=== PATIENT | male | born 1950 | race Caucasian/White ===

== ENCOUNTER → 2019-11-15 18:55 | Outpatient (CLI) | payer MEDICARE, OTHER ==
[2019-10-31 15:38] VITALS: BMI 27.8
[2019-11-15 19:48] LABS: HEMATOCRIT 39.2 % (42.0-54.0); MCHC 33.2 g/dL (31.0-37.0); MCV 90.5 fL (80.0-100.0); MEAN PLATELET VOLUME 9.8 fL (7.4-10.4); PLATELET COUNT 378 10x3/uL (130-400); RBC 4.33 10x6/uL (4.20-6.10); RDW 14.4 % (11.5-14.5); WBC 14.1 10x3/uL (4.8-10.8)
[2019-11-15 20:10] LABS: C-REACTIVE PROTEIN 3.9 mg/dL (0.0-0.9); CREATININE - SERUM 0.9 mg/dL (0.6-1.3)
[2019-11-15 20:33] LABS: LYMPHOCYTES 19 % (15-50); MONOCYTES 3 % (2-11); NEUTROPHILS 75 % (40-80); PLATELET ESTIMATE NORMAL
[2019-11-15 21:10] LABS: ERYTHROCYTE SEDIMENTATION RATE 6 mm/hr (0-20)
== END | disposition home or self-care (01) ==
LOC: D.LABREF 18:55
PROVIDERS: ATTEND Family Medicine
DX: M00.072 Staphylococcal arthritis, left ankle and foot (principal)

== ENCOUNTER → 2019-11-22 21:04 | Outpatient (CLI) | payer MEDICARE, OTHER ==
[2019-10-31 15:38] VITALS: BMI 27.8
[~2019-11-22 21:04] MED LIST: ANCEF 1 GM/D5W 51 G1 IV; HYDROCHLOROTH12.5 M1 PO; HYDROCODON-ACE1 EAC7 PO; LOTENSIN40 MG PO; OMEPRAZOLE20 M1 PO
[2019-11-22 22:31] LABS: ALBUMIN 3.5 g/dL (3.4-5.0); ALKALINE PHOSPHATASE 82 U/L (30-120); ALT (SGPT) 19 U/L (10-68); BILIRUBIN - TOTAL 0.27 mg/dL (0.2-1.3); CALC OSMOLALITY 282 mosm/kg (275-300); CALCIUM 8.6 mg/dL (8.5-10.1); CARBON DIOXIDE 28.7 mmol/L (21.0-32.0); CHLORIDE - SERUM 105 mmol/L (98-107); POTASSIUM - SERUM 3.3 mmol/L (3.5-5.1); PROTEIN - SERUM 6.6 g/dL (6.4-8.2); SODIUM 144 mmol/L (136-145); UREA NITROGEN 11 mg/dL (7-18); eGFR NON AFRICAN AMERICAN 78 mL/min (90-120)
[2019-11-22 22:35] LABS: GLUCOSE 36 mg/dL (74-106)
== END | disposition home or self-care (01) ==
LOC: D.LABREF 21:04
PROVIDERS: ATTEND Family Medicine
DX: M00.879 Arthritis due to other bacteria, unspecified ankle and foot (principal)

== ENCOUNTER → 2019-11-29 15:59 | Outpatient (CLI) | payer MEDICARE, OTHER ==
[2019-10-31 15:38] VITALS: BMI 27.8
[2019-11-29 16:15] LABS: HEMATOCRIT 43.3 % (42.0-54.0); HEMOGLOBIN 14.4 g/dL (13.5-17.5); MCH 29.6 pg (26.0-34.0); MCHC 33.3 g/dL (31.0-37.0); MCV 88.9 fL (80.0-100.0); MEAN PLATELET VOLUME 9.7 fL (7.4-10.4); PLATELET COUNT 430 10x3/uL (130-400); RBC 4.87 10x6/uL (4.20-6.10); RDW 14.4 % (11.5-14.5); WBC 13.4 10x3/uL (4.8-10.8)
[2019-11-29 16:34] LABS: C-REACTIVE PROTEIN 3.2 mg/dL (0.0-0.9)
[2019-11-29 17:24] LABS: ERYTHROCYTE SEDIMENTATION RATE 8 mm/hr (0-20)
[2019-11-29 17:36] LABS: EOSINOPHILS 3 % (0-7); LYMPHOCYTES 8 % (15-50); MONOCYTES 4 % (2-11); NEUTROPHILS 84 % (40-80); PLATELET ESTIMATE NORMAL
== END | disposition home or self-care (01) ==
LOC: D.LABREF 15:59
PROVIDERS: ATTEND Family Medicine
DX: M00.9 Pyogenic arthritis, unspecified (principal)

== ENCOUNTER → 2019-12-06 15:31 | Outpatient (CLI) | payer MEDICARE, OTHER ==
[2019-10-31 15:38] VITALS: BMI 27.8
[2019-12-06 16:11] LABS: HEMATOCRIT 42.9 % (42.0-54.0); HEMOGLOBIN 14.1 g/dL (13.5-17.5); MCH 29.9 pg (26.0-34.0); MCHC 32.9 g/dL (31.0-37.0); MCV 91.1 fL (80.0-100.0); MEAN PLATELET VOLUME 9.7 fL (7.4-10.4); PLATELET COUNT 386 10x3/uL (130-400); RBC 4.71 10x6/uL (4.20-6.10); RDW 14.5 % (11.5-14.5); WBC 13.6 10x3/uL (4.8-10.8)
[2019-12-06 16:42] LABS: C-REACTIVE PROTEIN 2.1 mg/dL (0.0-0.9)
[2019-12-06 17:14] LABS: EOSINOPHILS 2 % (0-7); LYMPHOCYTES 15 % (15-50); MONOCYTES 2 % (2-11); NEUTROPHILS 82 % (40-80); PLATELET ESTIMATE NORMAL
[2019-12-06 17:38] LABS: ERYTHROCYTE SEDIMENTATION RATE 4 mm/hr (0-20)
== END | disposition home or self-care (01) ==
LOC: D.LABREF 15:31
PROVIDERS: ATTEND Family Medicine
DX: M00.9 Pyogenic arthritis, unspecified (principal)

== ENCOUNTER → 2019-12-13 16:05 | Outpatient (CLI) | payer MEDICARE, OTHER ==
[2019-10-31 15:38] VITALS: BMI 27.8
[2019-12-13 16:23] LABS: HEMATOCRIT 43.5 % (42.0-54.0); HEMOGLOBIN 14.1 g/dL (13.5-17.5); MCHC 32.4 g/dL (31.0-37.0); MCV 89.5 fL (80.0-100.0); MEAN PLATELET VOLUME 9.6 fL (7.4-10.4); PLATELET COUNT 378 10x3/uL (130-400); RBC 4.86 10x6/uL (4.20-6.10); RDW 14.5 % (11.5-14.5); WBC 15.8 10x3/uL (4.8-10.8)
[2019-12-13 16:27] LABS: C-REACTIVE PROTEIN 3.8 mg/dL (0.0-0.9); CREATININE - SERUM 0.9 mg/dL (0.6-1.3)
[2019-12-13 17:09] LABS: EOSINOPHILS 1 % (0-7); LYMPHOCYTES 2 % (15-50); MONOCYTES 12 % (2-11); NEUTROPHILS 85 % (40-80); PLATELET MORPHOLOGY NORMAL PLT MORPH
[2019-12-13 17:10] LABS: PLATELET ESTIMATE NORMAL
[2019-12-13 17:34] LABS: ERYTHROCYTE SEDIMENTATION RATE 15 mm/hr (0-20)
== END | disposition home or self-care (01) ==
LOC: D.LABREF 16:05
PROVIDERS: ATTEND Family Medicine
DX: M00.9 Pyogenic arthritis, unspecified (principal)